=== PATIENT | male | born 1960 | race Caucasian/White ===

== ENCOUNTER → 2016-12-17 | Outpatient (CLI) | payer BC ==
--- NOTE | ~2016-12-17 | US8 ---
[facility] RADIOLOGY TEXT RESULTS PATIENT: JADE MCGUIRE LOCATION: [facility] : 64 UNIT #: [id number] AGE: [address]: Nelida Morales APRN SEX: M ORDER DR: [id number] [address] [address] [id number] O MR#: [id number] Acc #: [id number] NAME: JADE MCGUIRE : 1960 SEX: M STUDY DATE/TIME: 12/17/2016 9:32 UNIT: [facility] ROOM: STUDY DESCRIPTION: US Abdominal Wall/Quadrant Attending Physician: Nelida Morales A.P.R.N. Referring Physician: Nelida Morales A.P.R.N. Ordering Physician: Nelida Morales A.P.R.N. Primary Care Physician: Nelida Morales A.P.R.N. MEDICAL IMAGING REPORT This report is preliminary unless electronic signature is present. EXAM Abdominal ultrasound HISTORY Umbilical hernia. This patient states "his belly button sticks out and he can feel it". TECHNIQUE Real-time ultrasonography of the patient's umbilicus performed. Valsalva maneuvers performed. FINDINGS On the basis of these images, I cannot clearly state presence or absence of umbilical hernia. Please correlate with clinical examination. Consider assessment with CT scan. IMPRESSION Ultrasound of the umbilical area performed. I cannot clearly state presence or absence of umbilical hernia on basis of the images provided. Please correlate with the patient's clinical examination. If further imaging would assist in management, consider CT. Dictated by... Dave Gomez M.D. THIS IS AN ELECTRONICALLY VERIFIED REPORT Dave Gomez M.D. at 12/20/2016 5:03 PM KEVIN/jeny [facility] RADIOLOGY TEXT RESULTS PATIENT: JADE MCGUIRE LOCATION: [facility] #: [id number] : 64 UNIT #: [id number] AGE: [address]: Nelida Morales APRN SEX: M ORDER DR: TD: 12/19/2016 16:00 JOB #: [id number] MEDICAL IMAGING REPORT Page 1 of 1
== END | disposition home or self-care (01) ==
LOC: SGUS 07:56
DX: K42.9 Umbilical hernia without obstruction or gangrene (principal)
CPT/HCPCS: 76705